=== PATIENT | female | born 1960 | race Caucasian/White ===

== ENCOUNTER 2016-08-15 09:28 | Emergency (ER) | payer OTHER ==
--- NOTE | 2016-08-17 21:56 | ED ORDER SUMMARY ---
..... Patient: FLOWER PIERRE OrderSheet [facility] VisitID: [id number] [address] [place] [address] 56y, F Registration Date/Time: 08/15/2016 ORDER SHEET Weight: 131.5 kg (stated) Allergies: No Known Drug Allergy GENERAL ORDERS: MEDICATION ORDERS: Mmkbctv-Eiarew-Rjmql Pertussis IM 0.5 mL (NOW, per protocol) (10:39 08/15/2016 LSullivan R.N. per protocol) (10:40 LSullivan R.N.) IV FLUIDS: ORDER SHEET NOTES: [Electronically signed by Janet George R.N. (10:56 08/15/2016)] [Electronically signed by Valeriano Alvarado MD (21:56 08/17/2016)] [Electronically locked/signed by Janet George R.N. (10:56 08/15/2016)]
--- NOTE | 2016-08-17 21:56 | ED MAR SUMMARY ---
..... Medication Administration Record [facility] [address] [place] [address] Patient: FLOWER PIERRE Visit ID: [id number] 56y, F Weight: 131.5 kg Height/Length: 63 in BMI: 51.4 ALLERGIES: No Known Drug Allergy Given 10:40 08/15/2016 Janet George, RMatthewNMatthew Medication Administered: OGEENOS-EYBXXW-SHYWI PERTUSSIS [IM], Dose: 0.5 mL IM. Medication Ordered: Mgrthtt-Gfsuco-Wyovr Pertussis IM 0.5 mL (NOW, per protocol).
--- NOTE | 2016-08-17 21:56 | ED MED RECONCILIATION SUMMARY ---
Patient: FLOWER PIERRE Medication Reconciliation Report [facility] VisitID: [id number] [address] [place] [address] 56y, F Registration Date/Time: 08/15/2016 Weight: 131.5 kg Height/Length: 63 in. BMI: 51.4 ALLERGIES: No Known Drug Allergy The patient's Home Medications are listed below: Not obtained. The source(s) of the original Home Medication information: Not obtained. The following Medications were given to the patient in the Emergency Department: JLBDUIG-JXPYPW-RESOW PERTUSSIS [IM] IM 0.5 mL, administered: 08/15/2016 10:40:00 AM The following Medications were prescribed to the patient: None.
--- NOTE | 2016-08-17 21:56 | ED CLINICAL REPORT ---
Clinical Report - Physicians/Mid Levels [facility] [address] [place] [address] 08/15/2016 9:31 Patient: FLOWER PIERRE Arrived- By private vehicle. Historian- patient. HISTORY OF PRESENT ILLNESS Chief Complaint: DOG BITE. Location of injuries- right forearm (Pt [place] dog come [place] and bit he). The injury occurred just prior to arrival. The animal reportedly appeared well. The animal was not captured. This was a "provoked" attack. (see above). No skin rash or itching. She has not had swelling or trouble swallowing. REVIEW OF SYSTEMS No swelling or numbness. PAST HISTORY Tetanus immunization status is unknown. SOCIAL HISTORY Never smoker. ADDITIONAL NOTES The nursing notes have been reviewed. PHYSICAL EXAM Appearance: Alert. No acute distress. Extremities: Right forearm: small ecchymosis located in the mid forearm. Right wrist. Neurovascular intact distally. PROGRESS AND PROCEDURES Course of Care: Circumstances are odd. This is most likely a provoked attack. The abrasion is shallow and does not require antibiotics. Disposition: Discharged. Condition: stable. CLINICAL IMPRESSION Dog bite to the right forearm. INSTRUCTIONS Warnings: INFECTION: Watch for signs of infection (increasing heat and redness, pus-like drainage, swelling, or increased pain). Return or see your doctor if these signs occur. TETANUS: You were given a tetanus shot during your visit. Make a note for future reference. Follow-up: Follow up with your doctor as needed. Reason for referral: wound infection. Understanding of the discharge instructions verbalized by patient. (Electronically signed by Valeriano Alvarado MD 08/17/2016 21:56)
--- NOTE | 2016-08-17 21:56 | ED ORDER SUMMARY ---
..... Patient: FLOWER PIERRE OrderSheet [facility] VisitID: [id number] [address] [place] [address] 56y, F Registration Date/Time: 08/15/2016 ORDER SHEET Weight: 131.5 kg (stated) Allergies: No Known Drug Allergy GENERAL ORDERS: MEDICATION ORDERS: Askfyuz-Vnjixc-Cajlo Pertussis IM 0.5 mL (NOW, per protocol) (10:39 08/15/2016 LSullivan R.N. per protocol) (10:40 LSullivan R.N.) IV FLUIDS: ORDER SHEET NOTES: [Electronically signed by Janet George R.N. (10:56 08/15/2016)] [Electronically signed by Valeriano Alvarado MD (21:56 08/17/2016)] [Electronically locked/signed by Janet George R.N. (10:56 08/15/2016)]
--- NOTE | 2016-08-17 21:56 | ED NURSING NOTES ---
Clinical Report - Nurses [facility] [address] [place] [address] 08/15/2016 9:31 Patient: FLOWER PIERRE TRIAGE Triage time 10:26. Acuity: LEVEL 5. Chief Complaint: DOG BITE (dog is unknown to patient). Alert. SEPSIS SCREEN: Sepsis Screen. Negative (no infection suspected/documented). --10:31 Janet George R.N. 10:26 08/15/16. BP: 149/91. HR: 78. RR: 18. O2 saturation: 97%. Temp: 98.1 F. Pain level now: 07/29. --10:31 Janet George R.N. Weight: 131.5 kg stated. Height/Length: 63 inches Per Patient. BMI: 51.4. --10:30 Janet George R.N. Allergies No Known Drug Allergy. --10:27 Janet George R.N. History Arrived by private vehicle. Historian: patient. Primary physician (Hao). Location of injuries: right forearm. This occurred last night (at midnight). Circumstances: This was an "unprovoked" attack. The appearance and immunization status of the animal are unknown. PAST MEDICAL HX: Tetanus status: unknown. Denies current . SOCIAL HX: Never smoker. No alcohol use or drug use. NUTRITIONAL RISK ASSESSMENT: The nutritional risk assessment revealed no deficiencies. FUNCTIONAL ASSESSMENT: Functional assessment: no impairments noted. LEARNING NEEDS ASSESSMENT: The learning needs assessment revealed no barriers. --10:31 Janet George R.N. PROBLEMS: 5 herniated discs in back. Hypertension. --10:28 Janet George R.N. ADDITIONAL SURGERIES: Ankle. --10:28 Janet George R.N. Interventions ID band on patient. To room. --10:31 Janet eGorge R.N. PHYSICAL ASSESSMENT HEENT: ( 2 puncture wounds, pt didn't wash with soap and water when it occured). --10:31 Janet George R.N. NURSING PROGRESS NOTES 10:32 08/15/16. Patient identifiers checked. Call light placed in reach. Bed placed in lowest position. Patient ready for evaluation. --10:32 Janet George R.N. ( Pt instructed to wash wounds at sink with hibiclens/warm water, and pat dry with gauze). --10:34 Janet George R.N. 10:40 08/15/2016 CDFXAQH-KVFWSC-WWPNB PERTUSSIS IM 0.5 mL given. (Lot#: [id number], expiration date: 07/30/2018, Chisel Grinder: sanofi pasteur). Allergies verified and confirmed 5 rights. Vaccine information statement provided to the patient. --10:40 Janet George R.N. DISPOSITION / DISCHARGE Departure time: 1047. Condition at departure: improved. No learning barriers present. Discharge instructions provided and reviewed with the patient. Reviewed warnings (watch for signs of infection and get seen immediately if any develop that were discussed). Reviewed referral to family practice. Verbalized understanding. Written instructions provided. The patient was discharged home. She left the Emergency Department ambulatory and via private vehicle. --10:55 Janet George R.N. Locked/Released at 08/15/2016 10:56 by Janet George R.N.
--- NOTE | 2016-08-17 21:56 | ED MED RECONCILIATION SUMMARY ---
Patient: FLOWER PIERRE Medication Reconciliation Report [facility] VisitID: [id number] [address] [place] [address] 56y, F Registration Date/Time: 08/15/2016 Weight: 131.5 kg Height/Length: 63 in. BMI: 51.4 ALLERGIES: No Known Drug Allergy The patient's Home Medications are listed below: Not obtained. The source(s) of the original Home Medication information: Not obtained. The following Medications were given to the patient in the Emergency Department: NQLVUGV-MXHLNV-MPMKW PERTUSSIS [IM] IM 0.5 mL, administered: 08/15/2016 10:40:00 AM The following Medications were prescribed to the patient: None.
--- NOTE | 2016-08-17 21:56 | ED DISCHARGE INSTRUCTIONS ---
Patient: FLOWER PIERRE General Instructions [facility] VisitID: [id number] [place] [address] 56y, F Registration Date/Time: 08/15/2016 Dog bite to the right forearm. INSTRUCTIONS Warnings: INFECTION: Watch for signs of infection (increasing heat and redness, pus-like drainage, swelling, or increased pain). Return or see your doctor if these signs occur. TETANUS: You were given a tetanus shot during your visit. Make a note for future reference. Follow-up: Follow up with your doctor as needed. Reason for referral: wound infection. Understanding of the discharge instructions verbalized by patient. ADDITIONAL INFORMATION Animal Bite, General If you have been bitten by an animal and the wound is deep enough to break the skin, an infection may occur. Therefore, watch for the warning signs listed below. If a cut (laceration) was present, the doctor may not close the wound completely. This is to allow fluid to drain in the event of an infection. Home Care: Watch the wound for signs of infection listed below which may begin within6 hours after the bite and progress rapidly. In certain types of bites, antibiotics may be prescribed. Begin taking these as soon as possible until they are all gone. Rabies Prevention If you live in an area where rabies occurs in the wild animals, if you were bitten by a dog, cat, skunk, raccoon, yanez, coyote, bobcat, woodchuck, bat, or other meat-eating animal, there may be some risk to you of getting the rabies virus. If a healthy-looking pet dog or cat has bitten you, it should be kept in a secure area for the next 10 days to watch for signs of illness. (If the pet ice cream shop associate wont cooperate with you, contact the animal control department.) If the dog or cat becomes ill or dies during that time, contact your county animal control department at once so the animal may be tested for rabies. If the pet stays healthy for the next10 days, there is no danger of rabies in the animal or you. Pets fully vaccinated against rabies (2 shots) are at very low risk of infection; however, because human rabies is almost always fatal,any biting pet should be confined for10 days as an extra precaution. If astray pet bit you, contact the animal control department. They can provide information on capture, quarantine, and animal rabies testing. If you are unable to locate the animal that bit you in the next2 days, and if rabies exists in your region, you must be evaluated for the rabies vaccine series. Contact your doctor or return here promptly. All animal bites should be reported to the [facility] animal control department. If you were not given a form to fill out, you can report this yourself. Follow Up with your doctor or this facility as directed. Most skin wounds heal [id number] days. However, an infection may occur even with proper treatment. Check your wound every 6 hours for the first 2 days, then at least once a day for the next several days for the signs of infection listed below. Get Prompt Medical Attention if any of the following occur: Signs of infection: Spreading redness from the wound Increased pain or swelling Fever of 100.4F (38C) or higher, or as directed by your healthcare provider Colored fluid or pus draining from the wound Headache, confusion, strange behavior, or seizure (signs of a rabies infection) Dog Bite If a dog has bitten you and the wound is deep enough to break the skin, an infection may occur. Therefore, you should watch for the warning signs listed below. The doctor may not close the wound completely. This is to allow fluid to drain in the event of an infection. Home Care Watch the wound for signs of infection listed below. In certain types of bites, antibiotics may be prescribed. Begin taking these as soon as possible, as directed until they are all gone. Rabies Prevention If you live in an area where rabies occurs in wild animals, the rabies virus can be passed to cats and dogs. An infected animal can pass the rabies virus to you during a bite. If ahealthy-looking pet dog has bitten you, it should be kept in a secure area for the next 10 days to watch for signs of illness. If the pet ice cream shop associate wont cooperate with you, contact the [facility] animal control department (or local law enforcement). If the animal becomes ill or dies [id number] days, contact your animal control department at once. The animal must be tested for rabies. If the animal stays healthy for the next 10 days, then there is no danger of rabies in the dog or you. Pets fully vaccinated against rabies (2 shots) are at very low risk for the infection. However, because human rabies is almost always fatal, any biting dog should be kept in confinement for 10 days as an extra precaution. If a stray dog bit you, contact the animal control department. They can provide information on capture, quarantine, and animal rabies testing. If you are unable to locate the animal that bit you in the next 2days, and if rabies exists in your region, you must be evaluated for the rabies vaccine series. Contact your doctor or return here promptly. All animal bites should be reported to the [facility] animal control department. If you were not given a form to fill out, you can report it yourself by calling. Follow Up with your doctor as advised. Most skin wounds heal within 10 days. However, an infection may occur even with proper treatment. Check your woundevery 6 hoursfor 2 days, then at least once a day for the next two days for the signs of infection listed below. Get Prompt Medical Attention if any of the following occur: Signs of infection: Spreading redness Increased pain or swelling Fever of 100.4F (38C) or higher, or as directed by your healthcare provider Colored fluid or pus draining from the wound Headache, confusion, strange behavior, or a seizure (signs of a rabies infection) You have been given the following additional information: Animal Bite, General Dog Bite (Electronically signed by Valeriano Alvarado MD 08/17/2016 21:56)
--- NOTE | 2016-08-17 21:56 | ED MAR SUMMARY ---
..... Medication Administration Record [facility] [address] [place] [address] Patient: FLOWER PIERRE Visit ID: [id number] 56y, F Weight: 131.5 kg Height/Length: 63 in BMI: 51.4 ALLERGIES: No Known Drug Allergy Given 10:40 08/15/2016 Janet George, RMatthewNMatthew Medication Administered: ATFBSKR-TGYSUA-VXWQF PERTUSSIS [IM], Dose: 0.5 mL IM. Medication Ordered: Jvqmspz-Kqtxxu-Quxkm Pertussis IM 0.5 mL (NOW, per protocol).
--- NOTE | 2016-08-17 21:56 | ED NURSING NOTES ---
Clinical Report - Nurses [facility] [address] [place] [address] 08/15/2016 9:31 Patient: FLOWER PIERRE TRIAGE Triage time 10:26. Acuity: LEVEL 5. Chief Complaint: DOG BITE (dog is unknown to patient). Alert. SEPSIS SCREEN: Sepsis Screen. Negative (no infection suspected/documented). --10:31 Janet George R.N. 10:26 08/15/16. BP: 149/91. HR: 78. RR: 18. O2 saturation: 97%. Temp: 98.1 F. Pain level now: 07/29. --10:31 Janet George R.N. Weight: 131.5 kg stated. Height/Length: 63 inches Per Patient. BMI: 51.4. --10:30 Janet George R.N. Allergies No Known Drug Allergy. --10:27 Janet George R.N. History Arrived by private vehicle. Historian: patient. Primary physician (Hao). Location of injuries: right forearm. This occurred last night (at midnight). Circumstances: This was an "unprovoked" attack. The appearance and immunization status of the animal are unknown. PAST MEDICAL HX: Tetanus status: unknown. Denies current . SOCIAL HX: Never smoker. No alcohol use or drug use. NUTRITIONAL RISK ASSESSMENT: The nutritional risk assessment revealed no deficiencies. FUNCTIONAL ASSESSMENT: Functional assessment: no impairments noted. LEARNING NEEDS ASSESSMENT: The learning needs assessment revealed no barriers. --10:31 Janet George R.N. PROBLEMS: 5 herniated discs in back. Hypertension. --10:28 Janet George R.N. ADDITIONAL SURGERIES: Ankle. --10:28 Janet George R.N. Interventions ID band on patient. To room. --10:31 Janet George R.N. PHYSICAL ASSESSMENT HEENT: ( 2 puncture wounds, pt didn't wash with soap and water when it occured). --10:31 Janet George R.N. NURSING PROGRESS NOTES 10:32 08/15/16. Patient identifiers checked. Call light placed in reach. Bed placed in lowest position. Patient ready for evaluation. --10:32 Janet George R.N. ( Pt instructed to wash wounds at sink with hibiclens/warm water, and pat dry with gauze). --10:34 Janet George R.N. 10:40 08/15/2016 GIKFIMK-KJSXBG-TTYRK PERTUSSIS IM 0.5 mL given. (Lot#: [id number], expiration date: 07/30/2018, Substance Abuse Technician: sanofi pasteur). Allergies verified and confirmed 5 rights. Vaccine information statement provided to the patient. --10:40 Janet George R.N. DISPOSITION / DISCHARGE Departure time: 1047. Condition at departure: improved. No learning barriers present. Discharge instructions provided and reviewed with the patient. Reviewed warnings (watch for signs of infection and get seen immediately if any develop that were discussed). Reviewed referral to family practice. Verbalized understanding. Written instructions provided. The patient was discharged home. She left the Emergency Department ambulatory and via private vehicle. --10:55 Janet George R.N. Locked/Released at 08/15/2016 10:56 by Janet George R.N.
--- NOTE | 2016-08-17 21:56 | ED CLINICAL REPORT ---
Clinical Report - Physicians/Mid Levels [facility] [address] [place] [address] 08/15/2016 9:31 Patient: FLOWER PIERRE Arrived- By private vehicle. Historian- patient. HISTORY OF PRESENT ILLNESS Chief Complaint: DOG BITE. Location of injuries- right forearm (Pt [place] dog come [place] and bit he). The injury occurred just prior to arrival. The animal reportedly appeared well. The animal was not captured. This was a "provoked" attack. (see above). No skin rash or itching. She has not had swelling or trouble swallowing. REVIEW OF SYSTEMS No swelling or numbness. PAST HISTORY Tetanus immunization status is unknown. SOCIAL HISTORY Never smoker. ADDITIONAL NOTES The nursing notes have been reviewed. PHYSICAL EXAM Appearance: Alert. No acute distress. Extremities: Right forearm: small ecchymosis located in the mid forearm. Right wrist. Neurovascular intact distally. PROGRESS AND PROCEDURES Course of Care: Circumstances are odd. This is most likely a provoked attack. The abrasion is shallow and does not require antibiotics. Disposition: Discharged. Condition: stable. CLINICAL IMPRESSION Dog bite to the right forearm. INSTRUCTIONS Warnings: INFECTION: Watch for signs of infection (increasing heat and redness, pus-like drainage, swelling, or increased pain). Return or see your doctor if these signs occur. TETANUS: You were given a tetanus shot during your visit. Make a note for future reference. Follow-up: Follow up with your doctor as needed. Reason for referral: wound infection. Understanding of the discharge instructions verbalized by patient. (Electronically signed by Valeriano Alvarado MD 08/17/2016 21:56)
--- NOTE | 2016-08-17 21:56 | ED DISCHARGE INSTRUCTIONS ---
Patient: FLOWER PIERRE General Instructions [facility] VisitID: [id number] [place] [address] 56y, F Registration Date/Time: 08/15/2016 Dog bite to the right forearm. INSTRUCTIONS Warnings: INFECTION: Watch for signs of infection (increasing heat and redness, pus-like drainage, swelling, or increased pain). Return or see your doctor if these signs occur. TETANUS: You were given a tetanus shot during your visit. Make a note for future reference. Follow-up: Follow up with your doctor as needed. Reason for referral: wound infection. Understanding of the discharge instructions verbalized by patient. ADDITIONAL INFORMATION Animal Bite, General If you have been bitten by an animal and the wound is deep enough to break the skin, an infection may occur. Therefore, watch for the warning signs listed below. If a cut (laceration) was present, the doctor may not close the wound completely. This is to allow fluid to drain in the event of an infection. Home Care: Watch the wound for signs of infection listed below which may begin within6 hours after the bite and progress rapidly. In certain types of bites, antibiotics may be prescribed. Begin taking these as soon as possible until they are all gone. Rabies Prevention If you live in an area where rabies occurs in the wild animals, if you were bitten by a dog, cat, skunk, raccoon, yanez, coyote, bobcat, woodchuck, bat, or other meat-eating animal, there may be some risk to you of getting the rabies virus. If a healthy-looking pet dog or cat has bitten you, it should be kept in a secure area for the next 10 days to watch for signs of illness. (If the pet esthetician/owner wont cooperate with you, contact the animal control department.) If the dog or cat becomes ill or dies during that time, contact your county animal control department at once so the animal may be tested for rabies. If the pet stays healthy for the next10 days, there is no danger of rabies in the animal or you. Pets fully vaccinated against rabies (2 shots) are at very low risk of infection; however, because human rabies is almost always fatal,any biting pet should be confined for10 days as an extra precaution. If astray pet bit you, contact the animal control department. They can provide information on capture, quarantine, and animal rabies testing. If you are unable to locate the animal that bit you in the next2 days, and if rabies exists in your region, you must be evaluated for the rabies vaccine series. Contact your doctor or return here promptly. All animal bites should be reported to the [facility] animal control department. If you were not given a form to fill out, you can report this yourself. Follow Up with your doctor or this facility as directed. Most skin wounds heal [id number] days. However, an infection may occur even with proper treatment. Check your wound every 6 hours for the first 2 days, then at least once a day for the next several days for the signs of infection listed below. Get Prompt Medical Attention if any of the following occur: Signs of infection: Spreading redness from the wound Increased pain or swelling Fever of 100.4F (38C) or higher, or as directed by your healthcare provider Colored fluid or pus draining from the wound Headache, confusion, strange behavior, or seizure (signs of a rabies infection) Dog Bite If a dog has bitten you and the wound is deep enough to break the skin, an infection may occur. Therefore, you should watch for the warning signs listed below. The doctor may not close the wound completely. This is to allow fluid to drain in the event of an infection. Home Care Watch the wound for signs of infection listed below. In certain types of bites, antibiotics may be prescribed. Begin taking these as soon as possible, as directed until they are all gone. Rabies Prevention If you live in an area where rabies occurs in wild animals, the rabies virus can be passed to cats and dogs. An infected animal can pass the rabies virus to you during a bite. If ahealthy-looking pet dog has bitten you, it should be kept in a secure area for the next 10 days to watch for signs of illness. If the pet esthetician/owner wont cooperate with you, contact the [facility] animal control department (or local law enforcement). If the animal becomes ill or dies [id number] days, contact your animal control department at once. The animal must be tested for rabies. If the animal stays healthy for the next 10 days, then there is no danger of rabies in the dog or you. Pets fully vaccinated against rabies (2 shots) are at very low risk for the infection. However, because human rabies is almost always fatal, any biting dog should be kept in confinement for 10 days as an extra precaution. If a stray dog bit you, contact the animal control department. They can provide information on capture, quarantine, and animal rabies testing. If you are unable to locate the animal that bit you in the next 2days, and if rabies exists in your region, you must be evaluated for the rabies vaccine series. Contact your doctor or return here promptly. All animal bites should be reported to the [facility] animal control department. If you were not given a form to fill out, you can report it yourself by calling. Follow Up with your doctor as advised. Most skin wounds heal within 10 days. However, an infection may occur even with proper treatment. Check your woundevery 6 hoursfor 2 days, then at least once a day for the next two days for the signs of infection listed below. Get Prompt Medical Attention if any of the following occur: Signs of infection: Spreading redness Increased pain or swelling Fever of 100.4F (38C) or higher, or as directed by your healthcare provider Colored fluid or pus draining from the wound Headache, confusion, strange behavior, or a seizure (signs of a rabies infection) You have been given the following additional information: Animal Bite, General Dog Bite (Electronically signed by Valeriano Alvarado MD 08/17/2016 21:56)
== END 2016-08-15 10:47 | disposition home or self-care (01) ==
LOC: ED SRH 09:28
DX: S51.851A Open bite of right forearm, initial encounter (principal); W54.0XXA Bitten by dog, initial encounter; Y93.89 Activity, other specified; Z23 Encounter for immunization